=== PATIENT | female | born 1945 | race Caucasian/White ===

== ENCOUNTER → 2016-12-27 | Outpatient (REF) | payer MEDICARE, OTHER ==
[~2016-12-27] MED LIST: ASPI1TAB PO; CALC500C8 PO; FISH120012 PO; LOTE1TAB PO; MULTTAB PO; VITA200038 PO; ZOCO20TA PO; ZYRT10CA PO
[2016-12-27 12:43] LABS: ALBUMIN 3.8 GM/DL (3.2-5.2); ALBUMIN/GLOBULIN RATIO 1.19 (1.00-1.93); ALKALINE PHOSPHATASE 64 U/L (45-117); ALT/SGPT 22 U/L (12-78); ANION GAP 5 MEQ/L (8-16); AST/SGOT 14 U/L (15-37); BILIRUBIN,TOTAL 0.8 MG/DL (0.2-1.0); BLOOD UREA NITROGEN 15 MG/DL (7-18); CALCIUM LEVEL 9.1 MG/DL (8.8-10.2); CARBON DIOXIDE LEVEL 33 MEQ/L (21-32); CHLORIDE LEVEL 104 MEQ/L (98-107); CHOLESTEROL LEVEL 168 MG/DL (<200); CREATININE FOR GFR 0.77 MG/DL (0.55-1.02); GLOMERULAR FILTRATION RATE > 60.0 (>45); GLUCOSE, FASTING 108 MG/DL (80-110); POTASSIUM SERUM 4.6 MEQ/L (3.5-5.1); SODIUM LEVEL 142 MEQ/L (136-145); TRIGLYCERIDES LEVEL 94 MG/DL (<150)
== END ==
LOC: M LABDRAW1 11:31
PROVIDERS: ATTEND Nurse Practitioner Family
DX: E78.5 Hyperlipidemia, unspecified (principal); E55.9 Vitamin D deficiency, unspecified; I10 Essential (primary) hypertension

== ENCOUNTER → 2017-05-11 | Outpatient (CLI) | payer MEDICARE, BC, OTHER ==
[2017-05-11 09:11] LABS: ANION GAP 8 MEQ/L (8-16); BLOOD UREA NITROGEN 16 MG/DL (7-18); CALCIUM LEVEL 9.9 MG/DL (8.8-10.2); CARBON DIOXIDE LEVEL 32 MEQ/L (21-32); CHLORIDE LEVEL 103 MEQ/L (98-107); CREATININE FOR GFR 0.83 MG/DL (0.55-1.02); GLOMERULAR FILTRATION RATE > 60.0 (>39); GLUCOSE, FASTING 114 MG/DL (83-110); POTASSIUM SERUM 4.5 MEQ/L (3.5-5.1); SODIUM LEVEL 143 MEQ/L (136-145)
--- NOTE | 2017-05-11 23:23 | ECGEPIP ---
Stationary ECG Study [facility] Test Date: 2017-05-11 Pat Name: COURTNEY BILLINGSLEY Department: Room: - Gender: F Engineering And Development Director: [facility] : 1945 Requested By: ARCELIA Avendaño Order Number: [id number] Reading MD: Keenan Abraham Measurements Intervals [place] Rate: 71 P: 53 DE: 171 QRS: 52 QRSD: 80 T: 17 QT: 363 QTc: 394 Interpretive Statements SINUS RHYTHM LOW QRS VOLTAGE IN PRECORDIAL LEADS Poor R-wave progression. No prior ECG available for comparison at the time of interpretation. Electronically Signed On 05-11-2017 23:23:13 EDT by Keenan Abraham
== END ==
LOC: M LAB 08:15
PROVIDERS: ATTEND Ophthalmology
DX: H25.12 Age-related nuclear cataract, left eye (principal); I10 Essential (primary) hypertension

== ENCOUNTER → 2018-02-24 | Outpatient (REF) | payer MEDICARE, BC, OTHER ==
[2018-02-24 10:59] LABS: ALBUMIN 3.8 GM/DL (3.2-5.2); ALBUMIN/GLOBULIN RATIO 1.19 (1.00-1.93); ALKALINE PHOSPHATASE 60 U/L (45-117); ALT/SGPT 26 U/L (12-78); ANION GAP 3 MEQ/L (8-16); AST/SGOT 17 U/L (7-37); BILIRUBIN,TOTAL 0.8 MG/DL (0.2-1.0); BLOOD UREA NITROGEN 19 MG/DL (7-18); CARBON DIOXIDE LEVEL 32 MEQ/L (21-32); CHLORIDE LEVEL 106 MEQ/L (98-107); CHOLESTEROL LEVEL 167 MG/DL (<200); CHOLESTEROL RISK RATIO 2.569 (<5); CREATININE FOR GFR 0.75 MG/DL (0.55-1.30); GLOMERULAR FILTRATION RATE > 60.0 (>39); GLUCOSE, FASTING 105 MG/DL (70-100); HDL CHOLESTEROL 65 MG/DL (>40); NON-HDL-C 102 MG/DL; POTASSIUM SERUM 4.2 MEQ/L (3.5-5.1); SODIUM LEVEL 141 MEQ/L (136-145); TRIGLYCERIDES LEVEL 80 MG/DL (<150)
[2018-02-24 11:02] LABS: BASO # 0.1 10^3/uL (0.0-0.2); BASO % 1.9 % (0.0-1.0); EOS # 0.2 10^3/uL (0.0-0.50); HEMATOCRIT 42.2 % (36.0-47.0); HEMOGLOBIN 13.8 g/dl (12.0-15.5); IMMATURE GRANULOCYTE % 0.2 % (0-3.0); LYMPH # 1.5 10^3/uL (1.5-4.5); LYMPH % 32.7 % (24.0-44.0); MEAN CORPUSCULAR HEMOGLOBIN 29.8 pg (27.0-33.0); MEAN CORPUSCULAR HGB CONC 32.7 g/dl (32.0-36.5); MEAN CORPUSCULAR VOLUME 91.1 fl (80.0-96.0); MONO # 0.3 10^3/uL (0.0-0.8); MONO % 6.5 % (0.0-5.0); NEUTROPHILS # 2.5 10^3/uL (1.8-7.7); NEUTROPHILS % 53.7 % (36.0-66.0); PLATELET COUNT, AUTOMATED 293 10^3/uL (150-450); RED BLOOD COUNT 4.63 10^6/uL (4.00-5.40); RED CELL DISTRIBUTION WIDTH 13.7 % (11.5-14.5); WHITE BLOOD COUNT 4.6 10^3/uL (4.0-10.0)
[2018-02-24 11:57] LABS: TOTAL 25(OH) VITAMIN D 43.6 NG/ML (30.0-100.0)
== END ==
LOC: M LABDRAW1 08:26
DX: E78.5 Hyperlipidemia, unspecified (principal); I10 Essential (primary) hypertension; E55.9 Vitamin D deficiency, unspecified; Z79.899 Other long term (current) drug therapy
CPT/HCPCS: 80053

== ENCOUNTER → 2018-04-11 | Outpatient (REF) | payer MEDICARE, OTHER ==
[2018-04-11 18:47] LABS: FREE T3 2.9 PG/ML (2.2-4.0); FREE T4 0.96 NG/DL (0.76-1.46)
== END ==
LOC: M LABDRAW1 17:41
DX: R93.8 Abnormal findings on diagnostic imaging of other specified body structures (principal)
CPT/HCPCS: 84443

== ENCOUNTER → 2019-12-26 | Outpatient (REF) | payer MEDICARE, OTHER ==
[~2019-12-26] MED LIST changes: -ASPI1TAB PO; +ASPI81TA26 PO
[2019-12-26 13:57] LABS: HEMATOCRIT 45.2 % (36.0-47.0); HEMOGLOBIN 14.6 g/dl (12.0-15.5); MEAN CORPUSCULAR HEMOGLOBIN 29.6 pg (27.0-33.0); MEAN CORPUSCULAR HGB CONC 32.3 g/dl (32.0-36.5); MEAN CORPUSCULAR VOLUME 91.7 fl (80.0-96.0); PLATELET COUNT, AUTOMATED 325 10^3/uL (150-450); RED BLOOD COUNT 4.93 10^6/uL (4.00-5.40); WHITE BLOOD COUNT 5.5 10^3/uL (4.0-10.0)
[2019-12-26 14:07] LABS: ALBUMIN 4.2 GM/DL (3.2-5.2); ALT/SGPT 29 U/L (12-78); BILIRUBIN,TOTAL 1.1 MG/DL (0.2-1.0); BLOOD UREA NITROGEN 19 MG/DL (7-18); CALCIUM LEVEL 9.9 MG/DL (8.8-10.2); CARBON DIOXIDE LEVEL 31 MEQ/L (21-32); CHLORIDE LEVEL 103 MEQ/L (98-107); CHOLESTEROL LEVEL 183 MG/DL (<200); CHOLESTEROL RISK RATIO 2.731 (<5); CREATININE FOR GFR 0.75 MG/DL (0.55-1.30); GLOMERULAR FILTRATION RATE > 60.0 (>39); GLUCOSE, FASTING 103 MG/DL (70-100); HDL CHOLESTEROL 67 MG/DL (>40); LDL CHOLESTEROL 94 MG/DL (<100); NON-HDL-C 116 MG/DL; POTASSIUM SERUM 4.2 MEQ/L (3.5-5.1); SODIUM LEVEL 140 MEQ/L (136-145); TOTAL PROTEIN 7.4 GM/DL (6.4-8.2); TRIGLYCERIDES LEVEL 108 MG/DL (<150)
[2019-12-26 14:11] LABS: TOTAL 25(OH) VITAMIN D 85.8 NG/ML (30.0-100.0)
== END ==
LOC: M LABDRAW1 12:42
PROVIDERS: ATTEND Family Medicine
DX: E55.9 Vitamin D deficiency, unspecified (principal); I10 Essential (primary) hypertension; Z79.899 Other long term (current) drug therapy

== ENCOUNTER → 2020-12-30 | Outpatient (CLI) | payer MEDICARE, BC, OTHER ==
[2020-12-30 10:31] LABS: HEMATOCRIT 44.5 % (36.0-47.0); HEMOGLOBIN 14.2 g/dl (12.0-15.5); MEAN CORPUSCULAR HEMOGLOBIN 29.1 pg (27.0-33.0); MEAN CORPUSCULAR HGB CONC 31.9 g/dl (32.0-36.5); MEAN CORPUSCULAR VOLUME 91.2 fl (80.0-96.0); PLATELET COUNT, AUTOMATED 313 10^3/uL (150-450); RED BLOOD COUNT 4.88 10^6/uL (4.00-5.40); WHITE BLOOD COUNT 5.7 10^3/uL (4.0-10.0)
[2020-12-30 11:01] LABS: BLOOD UREA NITROGEN 19 MG/DL (7-18); CALCIUM LEVEL 9.6 MG/DL (8.8-10.2); CARBON DIOXIDE LEVEL 30 MEQ/L (21-32); CHLORIDE LEVEL 103 MEQ/L (98-107); CREATININE FOR GFR 0.75 MG/DL (0.55-1.30); GLOMERULAR FILTRATION RATE > 60.0 (>39); GLUCOSE, FASTING 113 MG/DL (70-100); POTASSIUM SERUM 4.3 MEQ/L (3.5-5.1); SODIUM LEVEL 138 MEQ/L (136-145)
[2020-12-30 11:02] LABS: ALBUMIN 4.1 GM/DL (3.2-5.2); ALT/SGPT 28 U/L (12-78); CHOLESTEROL LEVEL 191 MG/DL (<200); CHOLESTEROL RISK RATIO 2.728 (<5); HDL CHOLESTEROL 70 MG/DL (>40); LDL CHOLESTEROL 101 MG/DL (<100); NON-HDL-C 121 MG/DL; TOTAL PROTEIN 7.3 GM/DL (6.4-8.2); TRIGLYCERIDES LEVEL 98 MG/DL (<150)
[2020-12-30 11:07] LABS: TOTAL 25(OH) VITAMIN D 77.5 NG/ML (30.0-100.0)
== END ==
LOC: M LAB 09:12
PROVIDERS: ATTEND Family Medicine
DX: E55.9 Vitamin D deficiency, unspecified (principal); E78.00 Pure hypercholesterolemia, unspecified

== ENCOUNTER → 2021-01-07 | Outpatient (CLI) | payer MEDICARE, BC, OTHER ==
--- NOTE | 2021-01-07 12:15 | REP ---
INDICATION: RADICULOPATHY. COMPARISON: Pre operative exam of 02/24/2018 TECHNIQUE: Seven views FINDINGS: Since last examination anterior cervical discectomy has been performed with an internal fixation plate and fixing screws seen C5 through C7 inclusive. None of the affixing screws breach the endplates or posterior vertebral body cortices. Bone graft material is seen at the C5-6 and C6-7 levels. Mild disc space narrowing seen at all other levels. There is some limitation of flexion and extension radiographically. The intervertebral foramina appear mildly narrowed at C4-5 and C5-6. The dens cannot be effectively evaluated secondary to the superimposition of osseous structures and/or dentition on all views. Degenerative facet and uncovertebral joint changes are present at every level bilaterally. IMPRESSION: Postsurgical changes as described above. Degenerative changes as described above. Although this plain radiographic evaluation of the cervical spine shows no evidence of a fracture, it should be remembered that CT is much more sensitive than plain radiography of the C-spine in detecting fractures. If this examination was ordered to rule out a fracture then CT of the cervical spine is recommended. <Electronically signed by Masood Anaya > 01/07/21 [id number]
== END ==
LOC: M WUC 11:26
PROVIDERS: ATTEND Family Medicine
DX: M54.12 Radiculopathy, cervical region (principal)

== ENCOUNTER → 2021-03-31 | Outpatient (REF) | payer MEDICARE, BC, OTHER ==
[~2021-03-31] MED LIST changes: +BENA20TA6; +NITR100C2; +PHEN1TAB73
== END ==
LOC: M WUC 12:26
PROVIDERS: ATTEND Nurse Practitioner Family
DX: N39.0 Urinary tract infection, site not specified (principal)

== ENCOUNTER 2021-04-03 21:56 | Emergency (ER) | payer MEDICARE, BC, OTHER ==
[~2021-04-03] VITALS: Ht 154.9 cm; Wt 62.0 kg
[~2021-04-03 21:56] MED LIST changes: -BENA20TA6; -NITR100C2; -PHEN1TAB73
[2021-04-03] MEDS ORDERED: BENA20TA6 (22:14)
[2021-04-03] MEDS ORDERED: PHEN1TAB73 (22:14)
[2021-04-03] MEDS ORDERED: NITR100C2 (22:14)
[2021-04-03] MEDS ORDERED: ONDANSETRON 4MG/2ML VIAL IV ONE (23:20)
[2021-04-03] MEDS ORDERED: ACETAMINOPHEN TAB 650MG DOSE (2X325MG) PO ONE (23:20)
[2021-04-03] MEDS: GASTROGRAFIN SOLUTION 30ML PO SCH (23:45)
[2021-04-03] MEDS ORDERED: NS 1,000 ML IV ONE (23:50)
[2021-04-03] MEDS ORDERED: ISOVUE-370 76% 100ML VIAL As Ordered ONE (23:59)
[2021-04-04 00:09] LABS: BASO % 0.2 % (0.0-1.0); EOS # 0.4 10^3/uL (0.0-0.5); EOS % 4.9 % (0.0-3.0); HEMATOCRIT 41.5 % (36.0-47.0); LYMPH # 0.3 10^3/uL (1.5-5.0); LYMPH % 3.5 % (24.0-44.0); MEAN CORPUSCULAR HEMOGLOBIN 29.6 pg (27.0-33.0); MEAN CORPUSCULAR HGB CONC 33.7 g/dl (32.0-36.5); MEAN CORPUSCULAR VOLUME 87.7 fl (80.0-96.0); MONO # 0.3 10^3/uL (0.0-0.8); NEUTROPHILS # 7.1 10^3/uL (1.5-8.5); NEUTROPHILS % 86.7 % (36.0-66.0); PLATELET COUNT, AUTOMATED 302 10^3/uL (150-450); RED BLOOD COUNT 4.73 10^6/uL (4.00-5.40); WHITE BLOOD COUNT 8.2 10^3/uL (4.0-10.0)
[2021-04-04 00:12] LABS: ALBUMIN 3.3 GM/DL (3.2-5.2); BILIRUBIN,DIRECT 0.2 MG/DL (0.0-0.2); BILIRUBIN,TOTAL 0.6 MG/DL (0.2-1.0); TOTAL PROTEIN 6.8 GM/DL (6.4-8.2)
[2021-04-04] MEDS: GASTROGRAFIN SOLUTION 30ML PO SCH (00:15)
--- NOTE | 2021-04-04 02:55 | REPVR ---
PROCEDURE INFORMATION: Exam: CT Abdomen And Pelvis With Contrast Exam date and time: 04/03/2021 11:19 PM Age: 76 years old Clinical indication: Constipation and vomiting; Patient HX: UTI TECHNIQUE: Imaging protocol: Computed tomography of the abdomen and pelvis with contrast. Radiation optimization: All CT scans at this facility use at least one of these dose optimization techniques: automated exposure control; mA and/or kV adjustment per patient size (includes targeted exams where dose is matched to clinical indication); or iterative reconstruction. Contrast material: ISO; Contrast volume: 100 ml; Contrast route: INTRAVENOUS (IV); COMPARISON: No relevant prior studies available. FINDINGS: Lungs: Slight bibasilar interstitial coarsening with minimal fibro-atelectatic change. Liver: There are some small hepatic cysts measuring up to 14 mm in the hepatic dome with a Hounsfield measurement of 0. Gallbladder and bile ducts: Normal. No calcified stones. No ductal dilation. Pancreas: Normal. No ductal dilation. Spleen: Normal. No splenomegaly. Adrenal glands: Right adrenal nodule measuring 10 x 11 x 12 mm with a Hounsfield measurement of 65. There is slight nodular fullness of the left adrenal which may reflect nodular hyperplasia. Kidneys and ureters: There is a left renal cyst measuring up to 5 x 10 mm which is too small to characterize. Stomach and bowel: Mobile cecum. Mild colonic diverticulosis, greatest in the sigmoid without diverticulitis. Mild stool and contrast is noted throughout much of the colon. Appendix: A normal appendix is seen. Intraperitoneal space: Unremarkable. No free air. No significant fluid collection. Vasculature: There is minimal atherosclerotic calcification of the abdominal aorta. Lymph nodes: Unremarkable. No enlarged lymph nodes. Urinary bladder: Unremarkable as visualized. Reproductive: Status post hysterectomy. Bones/joints: Unremarkable. No acute fracture. Soft tissues: Unremarkable. IMPRESSION: 1. Right adrenal nodule measuring 10 x 11 x 12 mm. Consider 12 month follow-up adrenal CT. (Reference: [facility]) 2. Mild colonic diverticulosis, greatest in the sigmoid without diverticulitis. 3. Status post hysterectomy. 4. Otherwise negative CT abdomen/pelvis. COMMENTS: Consistent with the [employer]'s Incidental Findings Committee white paper (J Am Julia Radiol 2018): Any incidental renal lesion less than 1 cm or classified as too small to characterize, or any incidental cystic renal lesion characterized as simple-appearing, is likely benign. No follow-up imaging is recommended for these lesions per consensus recommendations based on imaging criteria. REFERENCES: Meenakshi GUTIERREZ, et al. Management of Incidental Adrenal Masses: A White Paper of the ACR Incidental Findings Committee. J Am Julia Radiol. 2017;14(8):9834-5079. Electronically signed by: Prosper Khan On 04/04/2021 02:55:26 AM
[2021-04-04 04:01] VITALS: BP 122/60
[2021-04-04] MEDS ORDERED: PRED20TA PO (16:31)
== END 2021-04-04 04:02 | disposition home or self-care (01) ==
LOC: M ED 21:56
DX: E27.9 Disorder of adrenal gland, unspecified (principal); R10.9 Unspecified abdominal pain; I10 Essential (primary) hypertension; E78.5 Hyperlipidemia, unspecified; Z79.899 Other long term (current) drug therapy; Z79.82 Long term (current) use of aspirin
CPT/HCPCS: 74177; 80047; 80076; 81001; 83690; 85025; 96361; 96374; 99284; J2405; Q9963; Q9967

== ENCOUNTER 2021-04-04 14:26 | Emergency (ER) | payer MEDICARE, BC, OTHER ==
[~2021-04-04] VITALS: Ht 154.9 cm; Wt 138.0 kg
[~2021-04-04 14:26] MED LIST changes: +BENA20TA6; +NITR100C2; +PHEN1TAB73
[2021-04-04] MEDS ORDERED: predniSONE 20 MG TAB PO ONE (16:00)
[2021-04-04] MEDS ORDERED: diphenhydrAMINE 25MG CAP PO ONE (16:00)
[2021-04-04] MEDS ORDERED: PRED20TA PO (16:31)
[2021-04-04 16:39] VITALS: BP 156/79
--- NOTE | 2021-04-05 11:22 | ED PDOC ---
Post-Departure Follow-Up SPOKE Oneida GARZON FROM [facility] WHO INDICATED PT WAS PRESENTING TO FILL RX FOR MEDICATION PRESCRIBED BY OUR ED YESTERDAY WHICH WAS SENT TO A DIFFERENT PHARMACY. REQUESTED VERBAL ORDER WHICH WAS PROVIDED FOR PREDNISON ORDERED ON 04/04/2021 Dorita Bhatt PA-C Apr 05, 2021 11:22
== END 2021-04-04 16:45 | disposition home or self-care (01) ==
LOC: M ED 14:26
DX: R21 Rash and other nonspecific skin eruption (principal); T36.95XA Adverse effect of unspecified systemic antibiotic, initial encounter; X58.XXXA Exposure to other specified factors, initial encounter; Y92.89 Other specified places as the place of occurrence of the external cause; I10 Essential (primary) hypertension; Z79.899 Other long term (current) drug therapy; Z79.82 Long term (current) use of aspirin
CPT/HCPCS: 99283; J7512

== ENCOUNTER 2021-04-13 11:39 | Inpatient (IN) | payer MEDICARE, BC, OTHER ==
[~2021-04-13] VITALS: Ht 154.9 cm; Wt 61.0 kg
[~2021-04-13 11:39] MED LIST changes: -BENA20TA6; +BENA20TA6 PO; +PRED20TA PO
[2021-04-13] MEDS ORDERED: NS 1,000 ML IV ONE (14:00)
[2021-04-13] MEDS ORDERED: FAMOTIDINE INJ 20MG/2ML VIAL (S0028 PER 1) IVP ONE (14:00)
[2021-04-13 14:39] LABS: BASO # 0.1 10^3/uL (0.0-0.2); BASO % 0.4 % (0.0-1.0); EOS # 0.1 10^3/uL (0.0-0.5); EOS % 0.9 % (0.0-3.0); HEMATOCRIT 47.1 % (36.0-47.0); HEMOGLOBIN 15.8 g/dl (12.0-15.5); LYMPH # 1.9 10^3/uL (1.5-5.0); MEAN CORPUSCULAR HEMOGLOBIN 29.4 pg (27.0-33.0); MEAN CORPUSCULAR HGB CONC 33.5 g/dl (32.0-36.5); MEAN CORPUSCULAR VOLUME 87.7 fl (80.0-96.0); MONO # 0.8 10^3/uL (0.0-0.8); MONO % 5.7 % (2.0-8.0); NEUTROPHILS # 10.6 10^3/uL (1.5-8.5); NEUTROPHILS % 77.4 % (36.0-66.0); PLATELET COUNT, AUTOMATED 408 10^3/uL (150-450); RED BLOOD COUNT 5.37 10^6/uL (4.00-5.40); WHITE BLOOD COUNT 13.8 10^3/uL (4.0-10.0)
[2021-04-13 15:07] LABS: ALBUMIN 3.7 GM/DL (3.2-5.2); ALT/SGPT 49 U/L (12-78); BILIRUBIN,DIRECT 0.2 MG/DL (0.0-0.2); BILIRUBIN,TOTAL 1.5 MG/DL (0.2-1.0); C REACTIVE PROTEIN QUANTITATIV < 0.30 MG/DL (0.00-0.30); LIPASE 131 U/L (73-393); TOTAL PROTEIN 7.2 GM/DL (6.4-8.2)
[2021-04-13 15:08] LABS: ERYTHROCYTE SEDIMENTATION RATE 7 mm/hr (0-30)
[2021-04-13] MEDS ORDERED: ISOVUE-370 76% 100ML VIAL As Ordered ONE (15:12)
--- NOTE | 2021-04-13 15:46 | REP ---
INDICATION: abd pain COMPARISON: 04/04/2021.. TECHNIQUE: CT Scan of the abdomen and pelvis was performed with intravenous administration of 100 cc of Isovue 370, without oral contrast. Sagittal and coronal reconstruction images are performed. FINDINGS: Lung bases: Unremarkable. Liver: There are few stable cysts in the liver. Gallbladder: Unremarkable. Spleen: Normal. Adrenals: There is a stable 1.2 cm right adrenal nodule. Pancreas: Normal. Kidneys: Normal. Small and large bowel: There is sigmoid diverticulosis without acute diverticulitis. Free fluid: None. Abdominal aorta: No aneurysm or dissection. Adenopathy: None. Appendix: Not inflamed. Osseous structures: Unremarkable. Pelvis: No mass. There is a small right inguinal hernia containing a nonobstructed bowel loop and a small amount of noninflamed fat. Prior hysterectomy. IMPRESSION: No change since the prior CT of 04/04/2021. there is sigmoid diverticulosis without acute diverticulitis. No free air or free fluid. No evidence of appendicitis. Small right inguinal hernia contains a nonobstructed bowel loop and a small amount of noninflamed fat. <Electronically signed by Cralo Castellanos > 04/13/21 [id number]
[2021-04-13] MEDS ORDERED: KETOROLAC 30 MG/ML 1ML VIAL IV ONE (16:35)
[2021-04-13] MEDS ORDERED: SYST1SOL4 OU (17:22)
[2021-04-13] MEDS ORDERED: CETI-24 PO (17:22)
[2021-04-13] MEDS ORDERED: CITRTAB16 PO (17:22)
[2021-04-13] MEDS ORDERED: D31000TA2 PO (17:22)
[2021-04-13] MEDS ORDERED: ASPI-161 PO (17:22)
[2021-04-13] MEDS ORDERED: GLUCTAB6 PO (17:22)
[2021-04-13] MEDS ORDERED: VITMTA PO (17:22)
[2021-04-13] MEDS ORDERED: HOME MED LIST COMPLETE! XX SCH (17:25)
[2021-04-13] MEDS ORDERED: MOM 30ML SUSPENSION UDC PO PRN (17:30)
--- NOTE | 2021-04-13 17:44 | HPEPDOC ---
General Date of Admission 04/13/21 Date of Service: Apr 13, 2021 Chief Complaint The patient is a 76-year-old female admitted with a reason for visit of Abd Pain. History of Present Illness HPI Pt is a 76yo F who presents with lower abdominal pain that onset overnight and was accompanied by an upper body burning sensation that subsided by morning. Two weeks ago pt was treated at urgent care for UTI w nitrofurantonin, and after taking for a few days she developed a rash on lower extremities. UTI symptoms of dysuria N/V, and lower abdominal pain subsided with 7 days of nitrofurantonin. She was seen again at urgent care one week ago, and prescribed prednisone for the rash, after taking that she had minor ankle swelling. Tuesday, she developed a cough and had one episode of diarrhea, with no BM since then. PMHx HTN Hyperlipidemia Diverticulosis SxHx Hysterectomy / menorrhagia 2 C-sect. Hernia Repair Varicose vein correction b/l legs Cervical fusion. FHx Mother pancreatic Ca Brother terminal w pancreatic Ca SHx Former smoker-quit 1979 1pk/day since teens No alcohol use No illicit drugs Retired and lived in [place] in winter ROS Gen: Denies fevers, chills, N, or V HEENT: Denies dysphagia, vision changes, HAs RESP: Denies SOB. CVS: Denies chest pain, palpitations ABD: Admits to lower abdominal pain and constipation : Denies dysuria, hematuria. MSK: Denies weakness. EXT: Denies current swelling. Skin: Admits to resolving rash on b/l lower extremities Objective Gen: Pleasant and in no acute distress. Psych: A+Ox3 HEENT: no cervical lymphadenopathy, PERRLA, EOMI, posterior pharynx normal, mo ist oral cavity. RESP: CTA b/l, no rhonchi, crackles, or wheeze. CVS: RRR, no murmur. Good capillary refill, Distal pulses 2/4 b/l. ABD: Tender to deep palpation in lower quadrants with mild guarding. Normoactive bowel sounds. Non-distended. MSK: plantarflexion and retail receiving clerk strength 5/5 b/l. Skin: mild petechial rash noted over b/l anterior lower legs. Imaging CT ABD/PEL W/IV CONTRAST (04/13) Reported as- No change since the prior CT of 04/04/2021. there is sigmoid diverticulosis without acute diverticulitis. No free air or free fluid. No evidence of appendicitis. Small right inguinal hernia contains a nonobstructed bowel loop and a small amount of noninflamed fat. Assessment Pt is a 76yo F with PMHx of HTN, hyperlipidemia, and diverticulosis who presents w lower abdominal pain and constipation that began last night. Pt was treated with nitrofurantoin when seen at urgent care 2 weeks ago, developed a petechial rash on lower extremities, discontinued medication, and was prescribed prednisone one week ago. On initial evaluation pt has leukocytosis and hyponatremia, with no acute findings on CT abdomen. She will be admitted for monitoring and correction of electrolyte abnormalities. Plan 1. Abdominal Pain SBO unlikely based on CT, and diverticulosis appears stable. Ischemia unlikely d/t lactic acid WNL. Likely secondary to constipation. UA showed no signs of infection, and lipase WNL at 131. 2. Constipation We will put Pt on clear liquid diet, and if she tolerates well we will consider advancing tomorrow. We will start Docusate and milk of magnesia PRN. 3. Hyponatremia Initial labs- Na at 129. We will check serum osmolality, urine osmolality and urine electrolytes. We will check thyroid labs. We will check cortisol baseline. We will check Mg and Phosphorus. Pending repeat BMP, we will start NS at 60cc/hr and will order BMP for every 4 hours. 4. Leukocytosis Initial labs- WBC at 13.6, ESR at 7. Suspected to be 2/2 recent prednisone use. We will continue to trend WBC. 5. HTN We are holding home hydrochlorothiazide. We will continue home dose Aspirin. 6. Hyperlipidemia We will continue home dose simvastatin. 7. Seasonal Allergies We will continue home dose Zyrtec. 8. DVT Prophylaxis We will start Heparin SC. Code status: - Full code Disposition: We will evaluate pt at least one night for sx improvement and electrolyte correction. PT/OT orders will be placed, and we will modify plan based on toleration of current diet and clinical status. Home Medications Scheduled Aspirin (Aspirin EC) 81 Mg Tablet.dr, 81 MG PO DAILY, (Reported) Benazepril/Hydrochlorothiazide (Benazepril-Hctz 20-12.5 mg Tab) 1 Each Tablet, 1 TAB PO DAILY, (Reported) Calcium Citrate/Vitamin D3 (Citracal + D Maximum Caplet) 1 Each Tablet, 1 TAB PO DAILY, (Reported) Cetirizine HCl (Cetirizine HCl) 10 Mg Tablet, 10 MG PO DAILY, (Reported) Cholecalciferol (Vitamin D3) (Vitamin D3) 1,000 Unit Tablet, 2,000 UNITS PO YUNG LY, (Reported) Gluc [place]ert[place] A/Vit C/Mn (Glucosamine Chondroitin Tab) 1 Each Tablet, 1 TAB PO DAILY, (Reported) Multivitamins (Thera M Plus Tablet) 1 Each Tablet, 1 TAB PO DAILY, (Reported) Simvastatin (Zocor) 20 Mg Tab, 20 MG PO QHS, (Reported) Scheduled PRN Propylene Glycol/Peg 400/Pf (Systane 0.3-0.4% Eye Drop) 1 Each Droperette, 1 DROP OU QID PRN for DRY EYES, (Reported) Allergies Coded Allergies: nitrofurantoin (Verified Allergy, Unknown, rash, 04/13/21) A-FIB/CHADSVASC A-FIB History Current/History of A-Fib/PAF?: No Current PO Anticoag Therapy: No Vital Signs Vital Signs Date Time Temp Pulse Resp B/P (MAP) Pulse Ox O2 Delivery O2 Flow Rate FiO2 04/13/21 14:36 04/13/21 11:40 97.9 82 18 97 Room Air Laboratory Data Labs 24H Laboratory Tests 2 04/13/21 14:04: Urine Color STRAW, Urine Appearance CLEAR, Urine pH 7.0, Urine Specific [place] 1.001L, Urine Protein NEGATIVE, Urine Glucose (UA) NEGATIVE, Urine Ketones NEGATIVE, Urine Blood NEGATIVE, Urine Nitrite NEGATIVE, Urine Bilirubin NEGATIVE, Urine Urobilinogen 0.2, Urine Leukocyte Esterase NEGATIVE, Urine WBC (Auto) 0, Urine RBC (Auto) 1, Urine Hyaline Casts (Auto) 0, Urine Bacteria (Auto) NEGATIVE, Urine Squamous Epithelial Cells 0, Urine Sperm (Auto) 04/13/21 14:28: Immature Granulocyte % (Auto) 1.6, Neutrophils (%) (Auto) 77.4H, Lymphocytes (%) (Auto) 14.0L, Monocytes (%) (Auto) 5.7, Eosinophils (%) (Auto) 0.9, Basophils (% ) (Auto) 0.4, Neutrophils # (Auto) 10.6H, Lymphocytes # (Auto) 1.9, Monocytes # (Auto) 0.8, Eosinophils # (Auto) 0.1, Basophils # (Auto) 0.1, Nucleated Red Blood Cells % (auto) 0.0, Erythrocyte Sedimentation Rate 7, Lactic Acid Level 1.6, Total Bilirubin 1.5H, Direct Bilirubin 0.2, Aspartate Amino Transf (AST/SGOT) 36, Alanine Aminotransferase (ALT/SGPT) 49, Alkaline Phosphatase 67, C-Reactive Protein, Quantitative < 0.30, Total Protein 7.2, Albumin 3.7, Albumin/Globulin Ratio 1.1L, Lipase 131 04/13/21 14:35: POC Glucose (Misc Panel) 123H, POC Sodium (Misc Panel) 129L, POC Potassium (Misc Panel) 3.9, POC Chloride (Misc Panel) 89L, POC Total CO2 (Misc Panel) 29.0H, POC Blood Urea Nitrogen (Misc Panel 12, POC Ionized Calcium (Misc Panel) 4.7, POC Creatinine (Misc Panel) 0.7, POC Hematocrit (Misc Panel) 50.0 04/13/21 16:49: CBC/BMP Laboratory Tests 04/13/21 14:28 Plan / VTE VTE Prophylaxis Ordered?: Yes GME ATTESTATION GME ATTESTATION My faculty preceptor for this patient encounter was physically present during the encounter and was fully available. All aspects of the patient interview, examination, medical decision making process, and medical care plan development were reviewed and approved by the faculty preceptor. The faculty preceptor is aware and concurs with the plan as stated in the body of this note and will attest to such by his/her cosignature. ATTENDING NOTE I, Diana Ozuna, have independently examined this patient and performed my own physical exam, as well as reviewed the documentation and edited where necessary. I have discussed in detail with the resident / student the findings and plan of treatment as documented by the resident / student and edited their note. I agree with their findings and treatment plan and have edited their documentation. I will continue to follow the patient during this hospital stay. Patient is a 76-year-old female with a past medical history of hypertension, dyslipidemia, diverticulosis, who presented to the emergency room with complaints of lower abdominal discomfort described as 7/10 burning continuously pain or lower abdomen. Patient was recently treated for urinary tract infection 2 weeks ago with nitrofurantoin. Patient had developed a rash of her lower extremities while on nitrofurantoin. She had subsequently discontinued use after 7 days and visited the emergency room where she was given a course of prednisone taper. Patient reports a long-standing history of constipation. In the emergency room, patient had a CT scan of her abdomen that was unrevealing other than a right inguinal hernia that was containing bowel loops that were non-obstructed. Hospitalist service was consulted for admission. After patient's sodium was noted to be 129. Physical reveals positive bowel sounds. No significant tenderness is appreciated of her abdomen. Assessment and plan: - Will continue with stool softeners and clear liquid diet at this time and will advance tomorrow if she is clinically feeling better - For her hyponatremia is likely medication and volume loss induced - Will check serum / urine osmolality, urine electrolytes, thyroid function, cortisol baseline - Will hold lisinopril and HCTZ - Will check BMP [id number] and start NS at 60 cc/hour MARY GIBSON S-3 Apr 13, 2021 17:44 DIANA OZUNA MD Apr 13, 2021 18:19
[2021-04-13 17:52] LABS: RSV AMPLIFICATION NEGATIVE (NEGATIVE)
[2021-04-13 19:01] LABS: BLOOD UREA NITROGEN 11 MG/DL (7-18); CALCIUM LEVEL 8.5 MG/DL (8.8-10.2); CARBON DIOXIDE LEVEL 32 MEQ/L (21-32); CHLORIDE LEVEL 100 MEQ/L (98-107); CREATININE FOR GFR 0.67 MG/DL (0.55-1.30); GLOMERULAR FILTRATION RATE > 60.0 (>39); GLUCOSE, FASTING 115 MG/DL (70-100); SODIUM LEVEL 136 MEQ/L (136-145)
[2021-04-13 19:02] LABS: MAGNESIUM LEVEL 2.1 MG/DL (1.8-2.4); PHOSPHORUS LEVEL 3.5 MG/DL (2.5-4.9)
[2021-04-13 19:12] LABS: FREE T3 2.7 PG/ML (2.2-4.0); FREE T4 1.42 NG/DL (0.76-1.46); THYROID STIMULATING HORMONE 3.27 uIU/ML (0.358-3.740)
[2021-04-13 19:17] VITALS: BP 128/63
[2021-04-13 19:50] LABS: CORTISOL BASELINE 8.9 UG/DL (4.3-22.4)
[2021-04-13] MEDS: DOCUSATE SODIUM 100MG CAPSULE PO SCH (20:52)
[2021-04-13] MEDS ORDERED: SIMVASTATIN 20 MG TAB PO SCH (21:00)
[2021-04-14 06:00] VITALS: BP 130/65
[2021-04-14 06:43] LABS: HEMATOCRIT 43.9 % (36.0-47.0); HEMOGLOBIN 14.5 g/dl (12.0-15.5); MEAN CORPUSCULAR HEMOGLOBIN 29.4 pg (27.0-33.0); PLATELET COUNT, AUTOMATED 336 10^3/uL (150-450); RED BLOOD COUNT 4.93 10^6/uL (4.00-5.40)
[2021-04-14 07:08] LABS: BLOOD UREA NITROGEN 12 MG/DL (7-18); CALCIUM LEVEL 8.7 MG/DL (8.8-10.2); CARBON DIOXIDE LEVEL 31 MEQ/L (21-32); CHLORIDE LEVEL 98 MEQ/L (98-107); CREATININE FOR GFR 0.79 MG/DL (0.55-1.30); GLOMERULAR FILTRATION RATE > 60.0 (>39); GLUCOSE, FASTING 88 MG/DL (70-100); POTASSIUM SERUM 4.6 MEQ/L (3.5-5.1); SODIUM LEVEL 134 MEQ/L (136-145)
[2021-04-14] MEDS: DOCUSATE SODIUM 100MG CAPSULE PO SCH (08:45)
[2021-04-14] MEDS ORDERED: ENOXAPARIN 40MG/0.4ML SYRINGE (J1650 PER 10MG) SC SCH (09:00)
[2021-04-14] MEDS ORDERED: MULTIVITAMINS/MINERALS THERAP 1 TAB PO SCH (09:00)
[2021-04-14] MEDS ORDERED: BENAZEPRIL 20 MG TAB PO SCH (09:00)
[2021-04-14] MEDS ORDERED: CETIRIZINE (ZyrTEC) 10 MG TAB PO SCH (09:00)
[2021-04-14] MEDS ORDERED: VITAMIN D 1,000 INTERNATIONAL UNITS TABLET PO SCH (09:00)
[2021-04-14] MEDS ORDERED: ASPIRIN 81MG ENTERIC TABLET PO SCH (09:00)
[2021-04-14 09:57] VITALS: BP 130/65
[2021-04-14] MEDS ORDERED: BENA20TA PO (10:04)
--- NOTE | 2021-04-14 10:30 | DS.PDOC ---
Discharge Summary General Date of Admission Apr 13, 2021 at 17:50 Date of Discharge 04/14/21 Attending Physician: TIERRA CERRATO MD Discharge Summary PROCEDURES PERFORMED DURING STAY: [None]. ADMITTING DIAGNOSES: 1. Hyponatremia 2. Abdominal pain with constipation. 4. Leukocytosis 5. HTN 6. Hyperlipidemia Code status: - Full code DISCHARGE DIAGNOSES: 1. Leukocytosis from steroids that were discontinued 2. HTN 3. Hyperlipidemia COMPLICATIONS/CHIEF COMPLAINT: Dehydration. HISTORY OF PRESENT ILLNESS: Patient presented to ER on 04/13/21 with abdominal pain, without bowel movements for 4 days. Patient says that she had a UTI 2 weeks before coming to hospital that was treated with Nitrofurantoin at urgent care. She then developed an allergic reaction to Nitrofurantoin and discontinued it 7 days after starting an 8 day dose of the medication. Allergic reaction consisted of generalized weakness and rash over both of her legs. She was prescribed steroids to help resolve the rash from nitrofurantoin. On electrolyte assessment patient was found to have hyponatremia with Na+ of 129. Hospitalist team believes that hyponatremia is caused by hydrochlorothiazide diuretic that patient was taking. HOSPITAL COURSE: Patient was admitted to the hospital on 04/13/21 for hyponatremia and treatment of constipation. Patient received an Abdominal CT which rules out SBO. Patient lactic acid level was normal making ischemia unlikely. Patient was prescribed docusate and milk of magnesium to help resolve constipation. Patient was taken off of hydrochlorothiazide and given 60 CCs of fluid every 4 hours to treat hyponatremia. Patient says she had a bowel movement during the 1st night of her stay and this resolved the abdominal pain that she was having. Patient hyponatremia was 134 on 04/14/21 in the morning - showing marked improvement. DISCHARGE MEDICATIONS: Please see below. ALLERGIES: Please see below. Review of systems: Patient denies headaches, nuchal rigidity, chest pain, chest palpations, SOB, dyspnea, tingling, numbness, weakness, new ABD pain, urinary pain or frequency, or abnormally colored urine or stool. PHYSICAL EXAMINATION ON DISCHARGE: VITAL SIGNS: Please see below. GENERAL: No fever HEENT: Patient has no nuchal tenderness on palpation NECK: No visible thyroid enlargement or lymph node enlargement CARDIOVASCULAR EXAMINATION: Patient has normal heart sounds with S1 and S2 present. No extra heart sounds or murmurs were heard on exam. RESPIRATORY EXAMINATION: Patient has clear and equal lung sounds BL ABDOMINAL EXAMINATION: Normal bowel sounds in frequency and strength. Patient has slight bowel tenderness on deep palpation of epigastric region of bowel. EXTREMITIES: Patient has no extremity pain or tenderness on palpation of her legs. Patient has 2/4 pedal and posterior tibial pulses BL. SKIN: Dry, flushed, and warm. NEUROLOGICAL EXAMINATION: No weakness in Lower or upper extremities on strength testing. PSYCHIATRIC EXAMINATION: Patient is alert and oriented *3. LABORATORY DATA: Please see below. IMAGING: CT ABD/PEL W/IV CONTRAST (04/13) Reported as- No change since the prior CT of 04/04/2021. there is sigmoid diverticulosis without acute diverticulitis. No free air or free fluid. No evidence of appendicitis. Small right inguinal hernia contains a nonobstructed bowel loop and a small amount of noninflamed fat. PROGNOSIS: Good ACTIVITY: As tolerated. DIET: Normal diet. DISCHARGE PLAN: Patient should discontinue hydrochlorothiazide and continue taking captopril. DISPOSITION: Patient will be discharged to home today. DISCHARGE INSTRUCTIONS: 1. Discontinue hydrochlorothiazide going forward, but have the patient continue captopril. ITEMS TO FOLLOWUP ON ON OUTPATIENT: 1. Follow up with PCP in 7 days from discharge. DISCHARGE CONDITION: Stable. TIME SPENT ON DISCHARGE: 45 minutes. Vital Signs/I&Os Vital Signs Date Time Temp Pulse Resp B/P (MAP) Pulse Ox O2 Delivery O2 Flow Rate FiO2 04/14/21 09:57 130/65 04/14/21 06:00 97.8 68 16 96 Room Air I&O- Last 24 Hours up to 6 AM 04/14/21 06:00 Intake Total 1300 ml Output Total 400 ml Balance 900 ml Laboratory Data Labs 24H Laboratory Tests 2 04/13/21 14:04: Urine Color STRAW, Urine Appearance CLEAR, Urine pH 7.0, Urine Specific [place] 1.001L, Urine Protein NEGATIVE, Urine Glucose (UA) NEGATIVE, Urine Ketones NEGATIVE, Urine Blood NEGATIVE, Urine Nitrite NEGATIVE, Urine Bilirubin NEGATIVE, Urine Urobilinogen 0.2, Urine Leukocyte Esterase NEGATIVE, Urine WBC (Auto) 0, Urine RBC (Auto) 1, Urine Hyaline Casts (Auto) 0, Urine Bacteria (Auto) NEGATIVE, Urine Squamous Epithelial Cells 0, Urine Sperm (Auto) 04/13/21 14:28: Immature Granulocyte % (Auto) 1.6, Neutrophils (%) (Auto) 77.4H, Lymphocytes (%) (Auto) 14.0L, Monocytes (%) (Auto) 5.7, Eosinophils (%) (Auto) 0.9, Basophils (%) (Auto) 0.4, Neutrophils # (Auto) 10.6H, Lymphocytes # (Auto) 1.9, Monocytes # (Auto) 0.8, Eosinophils # (Auto) 0.1, Basophils # (Auto) 0.1, Nucleated Red Blood Cells % (auto) 0.0, Erythrocyte Sedimentation Rate 7, Lactic Acid Level 1.6, Total Bilirubin 1.5H, Direct Bilirubin 0.2, Aspartate Amino Transf (AST/SGOT) 36, Alanine Aminotransferase (ALT/SGPT) 49, Alkaline Phosphatase 67, C-Reactive Protein, Quantitative < 0.30, Total Protein 7.2, Albumin 3.7, Albumin/Globulin Ratio 1.1L, Lipase 131 04/13/21 14:35: POC Glucose (Misc Panel) 123H, POC Sodium (Misc Panel) 129L, POC Potassium (Misc Panel) 3.9, POC Chloride (Misc Panel) 89L, POC Total CO2 (Misc Panel) 29.0H, POC Blood Urea Nitrogen (Misc Panel 12, POC Ionized Calcium (Misc Panel) 4.7, POC Creatinine (Misc Panel) 0.7, POC Hematocrit (Misc Panel) 50.0 04/13/21 16:49: Coronavirus (COVID-19)(PCR) NEGATIVE, Influenza Type A (RT-PCR) NEGATIVE, Influenza Type B (RT-PCR) NEGATIVE, Respiratory Syncytial Virus (PCR) NEGATIVE 04/13/21 18:23: Anion Gap 4L, Glomerular Filtration Rate > 60.0, Osmolality 278L, Calcium Level 8.5L, Phosphorus Level 3.5, Magnesium Level 2.1, Thyroid Stimulating Hormone (TSH) 3.270, Free Thyroxine 1.42, Free Triiodothyronine 2.7, Cortisol Baseline 8.9 04/14/21 06:02: Anion Gap 5L, Glomerular Filtration Rate > 60.0, Calcium Level 8.7L, Nucleated Red Blood Cells % (auto) 0.0 CBC/BMP Laboratory Tests 04/13/21 14:28 04/13/21 18:23 04/14/21 06:02 Discharge Medications Scheduled Aspirin (Aspirin EC) 81 Mg Tablet.dr, 81 MG PO DAILY, (Reported) Benazepril Hcl (Benazepril HCl) 20 Mg Tablet, 20 MG PO DAILY Calcium Citrate/Vitamin D3 (Citracal + D Maximum Caplet) 1 Each Tablet, 1 TAB PO DAILY, (Reported) Cetirizine HCl (Cetirizine HCl) 10 Mg Tablet, 10 MG PO DAILY, (Reported) Cholecalciferol (Vitamin D3) (Vitamin D3) 1,000 Unit Tablet, 2,000 UNITS PO DAILY, (Reported) Gluc [place]ert[place] A/Vit C/Mn (Glucosamine Chondroitin Tab) 1 Each Tablet, 1 TAB PO DAILY, (Reported) Multivitamins (Thera M Plus Tablet) 1 Each Tablet, 1 TAB PO DAILY, (Reported) Simvastatin (Zocor) 20 Mg Tab, 20 MG PO QHS, (Reported) Scheduled PRN Propylene Glycol/Peg 400/Pf (Systane 0.3-0.4% Eye Drop) 1 Each Droperette, 1 DROP OU QID PRN for DRY EYES, (Reported) Allergies Coded Allergies: nitrofurantoin (Verified Allergy, Unknown, rash, 04/13/21) GME ATTESTATION My faculty preceptor for this patient encounter was physically present during the encounter and was fully available. All aspects of the patient interview, examination, medical decision making process, and medical care plan development were reviewed and approved by the faculty preceptor. The faculty preceptor is aware and concurs with the plan as stated in the body of this note and will atte st to such by his/her cosignature. ATTENDING NOTE I personally examined the patient and discussed the lab and imaging findings with the resident and I agree with the above findings, summary and plan as detailed by the resident physician. EMILIE QUINTERO OMS-3 Apr 14, 2021 10:30 TIERRA CERRATO MD Apr 15, 2021 07:41
[2021-04-14 12:05] LABS: BLOOD UREA NITROGEN 12 MG/DL (7-18); CARBON DIOXIDE LEVEL 31 MEQ/L (21-32); CHLORIDE LEVEL 98 MEQ/L (98-107); CREATININE FOR GFR 0.88 MG/DL (0.55-1.30); GLOMERULAR FILTRATION RATE > 60.0 (>39); GLUCOSE, FASTING 103 MG/DL (70-100); POTASSIUM SERUM 4.2 MEQ/L (3.5-5.1); SODIUM LEVEL 135 MEQ/L (136-145)
== END 2021-04-14 12:05 | disposition home or self-care (01) | DRG 392 ==
LOC: M ED 11:39 → M ED INP 17:50 → M MSPAV 19:15
PROVIDERS: ADMIT Internal Medicine; ATTEND Internal Medicine
DX: K59.00 Constipation, unspecified (principal); E87.1 Hypo-osmolality and hyponatremia; I10 Essential (primary) hypertension; E78.5 Hyperlipidemia, unspecified; D72.829 Elevated white blood cell count, unspecified; K57.30 Diverticulosis of large intestine without perforation or abscess without bleeding; J30.2 Other seasonal allergic rhinitis; Z79.82 Long term (current) use of aspirin; Z79.899 Other long term (current) drug therapy; Z88.8 Allergy status to other drugs, medicaments and biological substances; Z20.822 Contact with and (suspected) exposure to COVID-19

== ENCOUNTER → 2021-06-29 | Outpatient (CLI) | payer MEDICARE, BC, OTHER ==
[~2021-06-29] MED LIST changes: +ASPI-161 PO; +BENA20TA PO; +CETI-24 PO; +CITRTAB16 PO; +D31000TA2 PO; +GLUCTAB6 PO; +SYST1SOL4 OU; +VITMTA PO
--- NOTE | 2021-06-29 14:03 | REPMRS ---
Patient History The patient states she has not had a clinical breast exam in over a year. Patient is postmenopausal. Family history of pancreatic cancer at age 50 in mother, pancreatic cancer at age 72 in brother, breast cancer at age 60 in maternal aunt, breast cancer at age 60 in maternal aunt. Took hormonal contraceptives for 4 years. Took estrogen for 10 years. Tomosynthesis is performed. Volpara breast density is c. [facility].2%. Moderna vaccine 10/29/20 right arm. 11/26/20 right arm. Patient states no breast complaints today. Patient has signed MRS History Sheet. Digital Woman Screen Mammo: June 29, 2021 - Exam #: [id number] Bilateral CC and MLO view(s) were taken. Technologist: RT Ashley Prior study comparison: June 09, 2020, bilateral digital mammo screening bilat, performed at [facility]. May 24, 2019, bilateral digital mammo screening bilat, performed at [facility]. FINDINGS: The breast tissue is heterogeneously dense. This may lower the sensitivity of mammography. There has been no change in the appearance of the mammogram from the prior studies. There is a moderate amount of residual fibroglandular tissue which is fairly symmetric. There is no interval development of dominant mass, areas of architectural distortion, or clustered microcalcification typical of malignancy. Assessment: BI-RADS/ACR category 1 mammogram. Negative Mammogram. Recommendation Routine screening mammogram in 1 year (for women over age 40). This mammogram was interpreted with the aid of an FDA-approved computer-aided dectection system. Electronically Signed By: Carlo Castellanos MD 06/29/21 [id number]
== END ==
LOC: M WHC 13:00
PROVIDERS: ATTEND Family Medicine Addiction Medicine
DX: Z12.31 Encounter for screening mammogram for malignant neoplasm of breast (principal)

== ENCOUNTER → 2022-04-12 | Outpatient (CLI) | payer MEDICARE, BC, OTHER ==
[~2022-04-12] MED LIST changes: +CITRACAL MAXIMU1 TAB PO; -CITRTAB16 PO; -D31000TA2 PO; +GASTROGRAFIN SOLUTION 30ML (Q9963) As Ordered ONE; -GLUCTAB6 PO; +GLUCTAB7 PO; +ISOVUE-370 76% 100ML VIAL As Ordered ONE; +SIMV-253 PO; +VITA100093 PO; -ZOCO20TA PO
[2022-04-12 14:25] LABS: BLOOD UREA NITROGEN 18 MG/DL (7-18); CREATININE FOR GFR 0.83 MG/DL (0.55-1.30); GLOMERULAR FILTRATION RATE > 60.0 (>39)
== END ==
LOC: M RAD 13:01
PROVIDERS: ATTEND Family Medicine Addiction Medicine
DX: K40.90 Unilateral inguinal hernia, without obstruction or gangrene, not specified as recurrent (principal); K57.30 Diverticulosis of large intestine without perforation or abscess without bleeding; K76.89 Other specified diseases of liver
CPT/HCPCS: 36415; 74177; 82565; 84520; Q9963; Q9967

== ENCOUNTER → 2022-05-03 | Outpatient (CLI) | payer MEDICARE, BC, OTHER ==
[~2022-05-03] MED LIST changes: +CITRTAB18 PO; -GASTROGRAFIN SOLUTION 30ML (Q9963) As Ordered ONE; -ISOVUE-370 76% 100ML VIAL As Ordered ONE
== END ==
LOC: M EKG 13:36
PROVIDERS: ATTEND Anesthesiology
DX: I10 Essential (primary) hypertension (principal)

== ENCOUNTER → 2022-05-06 | Outpatient (CLI) | payer MEDICARE, BC, OTHER | LOC: M LABSMTC 09:18 | PROVIDERS: ATTEND Anesthesiology | DX: Z01.818 Encounter for other preprocedural examination (principal); Z11.52 Encounter for screening for COVID-19 ==

== ENCOUNTER 2022-05-11 09:27 | Day surgery (SDC) | payer MEDICARE, BC, OTHER ==
[~2022-05-11] VITALS: Ht 154.9 cm; Wt 59.3 kg
[~2022-05-11 09:27] MED LIST changes: +LIDOCAINE 2% 100MG/5ML SDV (FOR ANES.) As Ordered ONE
[2022-05-11] MEDS ORDERED: LIDOCAINE 1% SDV 5ML VIAL SC PRN (09:55)
[2022-05-11] MEDS ORDERED: LR 1,000 ML IV SCH ×2 (09:55→19:05)
[2022-05-11] MEDS ORDERED: propofoL 200 MG/20 ML VIAL As Ordered ONE (11:26)
[2022-05-11] MEDS ORDERED: ROCURONIUM BROMIDE 50 MG/5 ML VIAL As Ordered ONE (11:26)
[2022-05-11] MEDS ORDERED: MIDAZOLAM INJ 2MG/2ML VIAL (J2250 PER 1MG) As Ordered ONE (11:27)
[2022-05-11] MEDS ORDERED: ONDANSETRON 4MG 2ML VIAL As Ordered ONE (11:27)
[2022-05-11] MEDS ORDERED: fentaNYL 250 MCG/5 ML INJECTION As Ordered ONE (11:27)
[2022-05-11] MEDS ORDERED: dexameTHASONE 4 MG/ML 1ML VIAL (J1100 PER 1MG) As Ordered ONE (11:27)
[2022-05-11] MEDS ORDERED: KETOROLAC 60MG 2ML VIAL As Ordered ONE (16:13)
[2022-05-11] MEDS ORDERED: SUGAMMADEX SODIUM 500 MG/5 ML VIAL (BRIDION) As Ordered ONE (16:13)
[2022-05-11] MEDS ORDERED: BUPIVACAINE HCL 0.25% 30ML VIAL As Ordered ONE (16:59)
[2022-05-11] MEDS ORDERED: HYDR-3713 PO (17:29)
[2022-05-11] MEDS ORDERED: ACETAMINOPHEN 1000MG 100ML IV BTL (OFIRMEV) (J0131 PER 10MG) As Ordered ONE (18:55)
[2022-05-11] MEDS ORDERED: oxyCODONE 5MG TAB PO PRN (19:05)
[2022-05-11] MEDS ORDERED: ONDANSETRON 4MG 2ML VIAL IV PRN (19:05)
[2022-05-11] MEDS ORDERED: HYDROMORPHONE HCL 0.5 MG/ 0.5 ML SYRINGE (J1170 PER 1) IV PRN (19:05)
[2022-05-11] MEDS ORDERED: fentaNYL 100 MCG/2 ML INJECTION IV PRN (19:05)
[2022-05-11] MEDS ORDERED: METOCLOPRAMIDE INJ 10MG/2ML VIAL (J2765 PER 1) IV PRN (19:50)
[2022-05-11 20:40] VITALS: BP 141/65
== END 2022-05-11 20:53 | disposition home or self-care (01) ==
LOC: M SDC 09:27
PROVIDERS: ATTEND Surgery
DX: K40.90 Unilateral inguinal hernia, without obstruction or gangrene, not specified as recurrent (principal); I10 Essential (primary) hypertension; E78.9 Disorder of lipoprotein metabolism, unspecified; M19.90 Unspecified osteoarthritis, unspecified site; Z87.891 Personal history of nicotine dependence; Z79.899 Other long term (current) drug therapy; Z79.82 Long term (current) use of aspirin; Z88.8 Allergy status to other drugs, medicaments and biological substances
CPT/HCPCS: 49650; C1781; J0131; J1100; J1885; J2250; J2405; J2765; J3010; S2900

== ENCOUNTER → 2022-07-09 | Outpatient (CLI) | payer MEDICARE, BC, OTHER ==
[~2022-07-09] MED LIST changes: +HYDR-3713 PO; -LIDOCAINE 2% 100MG/5ML SDV (FOR ANES.) As Ordered ONE
== END ==
LOC: M WHC 08:15
PROVIDERS: ATTEND Family Medicine Addiction Medicine
DX: Z12.31 Encounter for screening mammogram for malignant neoplasm of breast (principal); M81.0 Age-related osteoporosis without current pathological fracture

== ENCOUNTER → 2023-03-30 | Outpatient (REF) | payer MEDICARE, BC, OTHER ==
[2023-03-30 18:17] LABS: ALBUMIN 4.1 G/DL (3.2-5.2); ALKALINE PHOSPHATASE 71 U/L (46-116); ALT/SGPT 20 U/L (7.0-40); AST/SGOT 18 U/L (<34); BILIRUBIN,TOTAL 0.9 MG/DL (0.3-1.2); BLOOD UREA NITROGEN 15 MG/DL (9-23); CALCIUM LEVEL 9.5 MG/DL (8.3-10.6); CARBON DIOXIDE LEVEL 28 MMOL/L (20-31); CHLORIDE LEVEL 103 MMOL/L (98-107); CHOLESTEROL LEVEL 162 MG/DL (<200); CHOLESTEROL RISK RATIO 2.31 (<5); CREATININE FOR GFR 0.67 MG/DL (0.55-1.30); GLOMERULAR FILTRATION RATE > 60.0 (>39); GLUCOSE, FASTING 110 MG/DL (74-106); HDL CHOLESTEROL 70.1 MG/DL (>40); LDL CHOLESTEROL 72.1 MG/DL (<100); NON-HDL-C 91.9 MG/DL; POTASSIUM SERUM 4.5 MMOL/L (3.5-5.1); SODIUM LEVEL 140 MMOL/L (136-145); TOTAL PROTEIN 6.9 G/DL (5.7-8.2); TRIGLYCERIDES LEVEL 99 MG/DL (<150)
[2023-03-30 18:19] LABS: THYROID STIMULATING HORMONE 4.107 uIU/ML (0.55-4.78)
[2023-03-30 18:28] LABS: CPK CREATINE PHOSPHOKINASE 81 U/L (34-145)
== END ==
LOC: M LAB REF 17:50
PROVIDERS: ATTEND Family Medicine Addiction Medicine
DX: M79.10 Myalgia, unspecified site (principal); E78.5 Hyperlipidemia, unspecified

== ENCOUNTER 2023-05-30 11:03 | Emergency (ER) | payer MEDICARE, BC, OTHER ==
[~2023-05-30] VITALS: Ht 154.9 cm; Wt 60.0 kg
[2023-05-30] MEDS ORDERED: BENA-8 (11:17)
[2023-05-30] MEDS ORDERED: SIMV20TA22 (11:17)
[2023-05-30 12:41] LABS: BASO # 0.1 10^3/uL (0.0-0.2); BASO % 0.8 % (0.0-1.0); EOS # 0.1 10^3/uL (0.0-0.5); EOS % 0.9 % (0.0-3.0); HEMATOCRIT 40.7 % (36.0-47.0); HEMOGLOBIN 13.5 g/dl (12.0-15.5); LYMPH % 13.6 % (24.0-44.0); MEAN CORPUSCULAR HEMOGLOBIN 30.1 pg (27.0-33.0); MEAN CORPUSCULAR HGB CONC 33.2 g/dl (32.0-36.5); MEAN CORPUSCULAR VOLUME 90.8 fl (80.0-96.0); MONO # 0.4 10^3/uL (0.0-0.8); MONO % 5.7 % (2.0-8.0); NEUTROPHILS % 78.6 % (36.0-66.0); PLATELET COUNT, AUTOMATED 296 10^3/uL (150-450); RED BLOOD COUNT 4.48 10^6/uL (4.00-5.40); WHITE BLOOD COUNT 7.6 10^3/uL (4.0-10.0)
[2023-05-30 12:45] VITALS: BP 125/70
[2023-05-30 12:48] VITALS: O2SAT 97
[2023-05-30 12:51] LABS: ERYTHROCYTE SEDIMENTATION RATE 19 mm/hr (0-30)
[2023-05-30 12:56] LABS: INR 1.04; PARTIAL THROMBOPLASTIN TIME 24.9 SECONDS (24.8-34.2); PROTHROMBIN TIME 13.3 SECONDS (12.5-14.5)
[2023-05-30 13:04] LABS: C REACTIVE PROTEIN QUANTITATIV < 0.40 MG/DL (<1.0)
[2023-05-30 13:06] LABS: ALBUMIN 3.8 G/DL (3.2-5.2); ALKALINE PHOSPHATASE 62 U/L (46-116); ALT/SGPT 19 U/L (7.0-40); AST/SGOT 10 U/L (<34); BILIRUBIN,DIRECT 0.3 MG/DL (<0.4); BLOOD UREA NITROGEN 17 MG/DL (9-23); CALCIUM LEVEL 9.2 MG/DL (8.3-10.6); CARBON DIOXIDE LEVEL 31 MMOL/L (20-31); CHLORIDE LEVEL 105 MMOL/L (98-107); GLOMERULAR FILTRATION RATE > 60.0 (>39); GLUCOSE, FASTING 108 MG/DL (74-106); POTASSIUM SERUM 4.1 MMOL/L (3.5-5.1); SODIUM LEVEL 142 MMOL/L (136-145); TOTAL PROTEIN 6.6 G/DL (5.7-8.2)
[2023-05-30 13:12] VITALS: TEMP 98.2
== END 2023-05-30 13:00 | disposition home or self-care (01) ==
LOC: M ED 11:03
DX: R60.9 Edema, unspecified (principal); M54.10 Radiculopathy, site unspecified; I10 Essential (primary) hypertension; E78.5 Hyperlipidemia, unspecified; Z88.1 Allergy status to other antibiotic agents; Z79.899 Other long term (current) drug therapy

== ENCOUNTER → 2023-06-16 | Outpatient (REF) | payer MEDICARE, BC, OTHER ==
[~2023-06-16] MED LIST changes: +BENA-8; +SIMV20TA22
== END ==
LOC: M LAB REF 16:30
PROVIDERS: ATTEND Family Medicine Addiction Medicine
DX: R39.9 Unspecified symptoms and signs involving the genitourinary system (principal)

== ENCOUNTER → 2023-06-17 | Outpatient (CLI) | payer MEDICARE, BC, OTHER ==
[2023-06-17 17:33] LABS: BASO # 0.1 10^3/uL (0.0-0.2); BASO % 1.1 % (0.0-1.0); EOS # 0.2 10^3/uL (0.0-0.5); EOS % 3.2 % (0.0-3.0); HEMATOCRIT 40.4 % (36.0-47.0); HEMOGLOBIN 13.5 g/dl (12.0-15.5); LYMPH % 32.4 % (24.0-44.0); MEAN CORPUSCULAR HEMOGLOBIN 30.8 pg (27.0-33.0); MEAN CORPUSCULAR HGB CONC 33.4 g/dl (32.0-36.5); MONO # 0.4 10^3/uL (0.0-0.8); MONO % 6.5 % (2.0-8.0); NEUTROPHILS # 3.6 10^3/uL (1.5-8.5); NEUTROPHILS % 56.6 % (36.0-66.0); PLATELET COUNT, AUTOMATED 325 10^3/uL (150-450); RED BLOOD COUNT 4.39 10^6/uL (4.00-5.40); WHITE BLOOD COUNT 6.3 10^3/uL (4.0-10.0)
== END ==
LOC: M PLALAB 14:36
PROVIDERS: ATTEND Family Medicine Addiction Medicine
DX: M25.561 Pain in right knee (principal)

== ENCOUNTER → 2024-02-16 | Outpatient (REF) | payer MEDICARE, BC, OTHER ==
[~2024-02-16] MED LIST changes: -ASPI-161 PO; +ASPI-615 PO
== END ==
LOC: M LAB REF 16:09
PROVIDERS: ATTEND Family Medicine Addiction Medicine
DX: N39.0 Urinary tract infection, site not specified (principal)

== ENCOUNTER 2024-02-22 11:06 | Emergency (ER) | payer MEDICARE, BC ==
[~2024-02-22] VITALS: Ht 154.9 cm; Wt 58.8 kg
[2024-02-22] MEDS: NS 1,000 ML IV ONE (12:30)
[2024-02-22 12:45] LABS: BASO # 0.1 10^3/uL (0.0-0.2); BASO % 0.6 % (0.0-1.0); EOS # 0.1 10^3/uL (0.0-0.5); EOS % 0.4 % (0.0-3.0); HEMATOCRIT 44.1 % (36.0-47.0); HEMOGLOBIN 14.6 g/dl (12.0-15.5); LYMPH # 1.6 10^3/uL (1.5-5.0); LYMPH % 13.2 % (24.0-44.0); MEAN CORPUSCULAR HEMOGLOBIN 29.6 pg (27.0-33.0); MEAN CORPUSCULAR HGB CONC 33.1 g/dl (32.0-36.5); MEAN CORPUSCULAR VOLUME 89.3 fl (80.0-96.0); MONO # 0.9 10^3/uL (0.0-0.8); MONO % 7.4 % (2.0-8.0); NEUTROPHILS # 9.4 10^3/uL (1.5-8.5); NEUTROPHILS % 78.1 % (36.0-66.0); PLATELET COUNT, AUTOMATED 328 10^3/uL (150-450); RED BLOOD COUNT 4.94 10^6/uL (4.00-5.40)
[2024-02-22 13:10] LABS: ALBUMIN 3.8 G/DL (3.2-5.2); ALKALINE PHOSPHATASE 79 U/L (46-116); ALT/SGPT 15 U/L (7.0-40); AST/SGOT 10 U/L (<34); BILIRUBIN,DIRECT 0.3 MG/DL (<0.4); BILIRUBIN,TOTAL 0.9 MG/DL (0.3-1.2); BLOOD UREA NITROGEN 13 MG/DL (9-23); CALCIUM LEVEL 9.9 MG/DL (8.3-10.6); CARBON DIOXIDE LEVEL 29 MMOL/L (20-31); CHLORIDE LEVEL 99 MMOL/L (98-107); CREATININE FOR GFR 0.95 MG/DL (0.55-1.30); GLOMERULAR FILTRATION RATE > 60.0 (>39); GLUCOSE, FASTING 113 MG/DL (74-106); POTASSIUM SERUM 4.6 MMOL/L (3.5-5.1); SODIUM LEVEL 136 MMOL/L (136-145); TOTAL PROTEIN 7.3 G/DL (5.7-8.2)
[2024-02-22 16:32] VITALS: BP 139/65; TEMP 97; O2SAT 95
[2024-02-22] MEDS: cefTRIAXone SOD 1 GM in D5W MINI-BAG PLUS 50 ML IV ONE (16:36)
[2024-02-22] MEDS ORDERED: MIRA3350 PO (17:22)
== END 2024-02-22 17:29 | disposition home or self-care (01) ==
LOC: M ED 11:06
DX: N39.0 Urinary tract infection, site not specified (principal); K59.00 Constipation, unspecified; M17.12 Unilateral primary osteoarthritis, left knee; I10 Essential (primary) hypertension; F10.10 Alcohol abuse, uncomplicated; Z87.891 Personal history of nicotine dependence; Z88.8 Allergy status to other drugs, medicaments and biological substances; Z79.899 Other long term (current) drug therapy
CPT/HCPCS: 73564; 74176; 80048; 80076; 81001; 85025; 87086; 93971; 96361; 96365; 99284; J0696

== ENCOUNTER 2024-02-26 07:59 | Emergency (ER) | payer MEDICARE, BC ==
[~2024-02-26] VITALS: Ht 154.9 cm; Wt 58.0 kg
[~2024-02-26 07:59] MED LIST changes: +MIRA3350 PO
[2024-02-26] MEDS ORDERED: ECOT81TA5 PO (08:09)
[2024-02-26] MEDS: DOCUSATE SODIUM 100MG CAPSULE PO ONE (09:40)
[2024-02-26] MEDS: MAGNESIUM CITRATE 300ML BTL PO ONE (09:40)
[2024-02-26] MEDS ORDERED: SENN-188 PO (11:42)
[2024-02-26 11:53] VITALS: BP 141/72; TEMP 96.8; O2SAT 96
== END 2024-02-26 11:58 | disposition home or self-care (01) ==
LOC: M ED 07:59
DX: K59.00 Constipation, unspecified (principal); I10 Essential (primary) hypertension; Z88.8 Allergy status to other drugs, medicaments and biological substances; Z79.1 Long term (current) use of non-steroidal anti-inflammatories (NSAID); Z79.899 Other long term (current) drug therapy

== ENCOUNTER 2024-03-03 16:44 | Emergency (ER) | payer MEDICARE, BC ==
[~2024-03-03] VITALS: Ht 154.9 cm; Wt 60.5 kg
[~2024-03-03 16:44] MED LIST changes: +ECOT81TA5 PO; +SENN-188 PO
[2024-03-03 20:15] VITALS: BP 147/70; TEMP 97.6; O2SAT 96
== END 2024-03-03 20:00 | disposition home or self-care (01) ==
LOC: M ED 16:44
DX: S93.401A Sprain of unspecified ligament of right ankle, initial encounter (principal); Y92.019 Unspecified place in single-family (private) house as the place of occurrence of the external cause; Y93.9 Activity, unspecified; Y99.9 Unspecified external cause status; W10.8XXA Fall (on) (from) other stairs and steps, initial encounter; I10 Essential (primary) hypertension; E78.5 Hyperlipidemia, unspecified; Z88.8 Allergy status to other drugs, medicaments and biological substances; Z79.1 Long term (current) use of non-steroidal anti-inflammatories (NSAID); Z79.899 Other long term (current) drug therapy

== ENCOUNTER → 2025-01-07 | Outpatient (REF) | payer MEDICARE, BC ==
[2025-01-07 18:53] LABS: FREE T4 1.45 NG/DL (0.89-1.76)
[2025-01-07 18:54] LABS: THYROID STIMULATING HORMONE 0.102 uIU/ML (0.55-4.78)
== END ==
LOC: M LAB REF 17:27
PROVIDERS: ATTEND Family Medicine Addiction Medicine
DX: E04.2 Nontoxic multinodular goiter (principal)

== ENCOUNTER → 2025-01-31 | Outpatient (CLI) | payer MEDICARE, BC | LOC: M RAD 13:01 | PROVIDERS: ATTEND Family Medicine Addiction Medicine | DX: E04.2 Nontoxic multinodular goiter (principal) ==

== ENCOUNTER → 2025-04-24 | Outpatient (REF) | payer MEDICARE, OTHER | LOC: M LAB REF 16:17 | PROVIDERS: ATTEND Family Medicine Addiction Medicine | DX: R39.9 Unspecified symptoms and signs involving the genitourinary system (principal) ==

== ENCOUNTER → 2025-06-03 | Outpatient (REF) | payer MEDICARE, BC ==
[2025-06-03 15:19] LABS: FREE T4 1.12 NG/DL (0.89-1.76)
== END ==
LOC: M LAB REF 14:10
PROVIDERS: ATTEND Family Medicine Addiction Medicine
DX: E04.2 Nontoxic multinodular goiter (principal)

== ENCOUNTER → 2025-06-19 | Outpatient (REF) | payer MEDICARE, BC ==
[2025-06-19 15:13] LABS: APPEARANCE, URINE HAZY (CLEAR); BACTERIA, URINE AUTO NEGATIVE (NEGATIVE); BILIRUBIN, URINE AUTO NEGATIVE (NEGATIVE); BLOOD, URINE BLOOD NEGATIVE (NEGATIVE); GLUCOSE, URINE (UA) AUTO NEGATIVE (NEGATIVE); KETONE, URINE AUTO NEGATIVE (NEGATIVE); LEUKOCYTE ESTERASE, URINE AUTO 3+ (NEGATIVE); NITRITE, URINE AUTO NEGATIVE (NEGATIVE); PROTEIN, URINE AUTO NEGATIVE (NEGATIVE); RBC, URINE AUTO 1 /HPF (0-3); SPECIFIC GRAVITY URINE AUTO 1.004 (1.002-1.035); SQUAMOUS EPITHELIAL CELL UR AU 0 /HPF (0-6); UROBILINOGEN, URINE AUTO 0.2 mg/dL (0.0-2.0); WBC, URINE AUTO 31 /HPF (0-3)
== END ==
LOC: M SMT 13:08
PROVIDERS: ATTEND Physician Assistant
DX: R39.89 Other symptoms and signs involving the genitourinary system (principal)

== ENCOUNTER → 2025-06-24 | Outpatient (CLI) | payer MEDICARE, BC ==
[~2025-06-24] MED LIST changes: +GASTROGRAFIN SOLUTION 30 ML As Ordered ONE
== END ==
LOC: M RAD 14:34
PROVIDERS: ATTEND Physician Assistant
DX: R39.89 Other symptoms and signs involving the genitourinary system (principal); K76.89 Other specified diseases of liver; K57.90 Diverticulosis of intestine, part unspecified, without perforation or abscess without bleeding; I70.0 Atherosclerosis of aorta
CPT/HCPCS: 74176; Q9963

== ENCOUNTER → 2025-08-02 | Outpatient (REF) | payer MEDICARE, BC ==
[~2025-08-02] MED LIST changes: -GASTROGRAFIN SOLUTION 30 ML As Ordered ONE
== END ==
LOC: M LAB REF 17:16
PROVIDERS: ATTEND Physician Assistant
DX: R30.0 Dysuria (principal)